=== PATIENT | male | born 1980 | race Caucasian/White ===

== ENCOUNTER → 2019-07-20 07:30 | Outpatient (BNVA) | payer OTHER, SELFPAY | PROVIDERS: Visit Provider Nurse Practitioner | DX: F43.12 Post-traumatic stress disorder, chronic (principal); Z87.820 Personal history of traumatic brain injury | CPT/HCPCS: 90832; 99213 ==

== ENCOUNTER → 2019-08-01 13:12 | Outpatient (BNVA) | payer OTHER, SELFPAY | PROVIDERS: Visit Provider Nurse Practitioner | DX: Z87.820 Personal history of traumatic brain injury (principal); F43.12 Post-traumatic stress disorder, chronic | CPT/HCPCS: 99214 ==

== ENCOUNTER → 2019-11-09 08:24 | Outpatient (BNVA) | payer OTHER, SELFPAY | PROVIDERS: Visit Provider Nurse Practitioner | DX: Z87.820 Personal history of traumatic brain injury (principal); F43.12 Post-traumatic stress disorder, chronic | CPT/HCPCS: 99214 ==

== ENCOUNTER → 2019-12-05 07:34 | Outpatient (BNVA) | payer OTHER, SELFPAY | PROVIDERS: Visit Provider Nurse Practitioner | DX: Z87.820 Personal history of traumatic brain injury (principal); F43.12 Post-traumatic stress disorder, chronic | CPT/HCPCS: 99213 ==

== ENCOUNTER → 2021-03-04 11:32 | Outpatient (BNVA) | payer OTHER, SELFPAY | PROVIDERS: Visit Provider Nurse Practitioner | DX: F43.12 Post-traumatic stress disorder, chronic (principal); F17.210 Nicotine dependence, cigarettes, uncomplicated; Z87.820 Personal history of traumatic brain injury | CPT/HCPCS: 99215 ==

== ENCOUNTER → 2021-04-01 11:06 | Outpatient (BNVA) | payer OTHER, SELFPAY | PROVIDERS: Visit Provider Nurse Practitioner | DX: F43.12 Post-traumatic stress disorder, chronic (principal); Z87.820 Personal history of traumatic brain injury | CPT/HCPCS: 99214 ==

== ENCOUNTER 2021-07-04 11:25 | Outpatient (CLI) | payer OTHER, SELFPAY ==
--- NOTE | 2021-07-04 11:27 | CT_ITS ---
WS: [id number] NONCONTRAST CT OF THE RIGHT HAND TECHNIQUE: Noncontrast CT of the right hand with coronal and sagittal reformatted images. CLINICAL INFORMATION: M79.643 - Pain in unspecified hand COMPARISON: Radiograph February 17, 2021 DLP: 122.[address] scans at [facility] use at least one of these dose optimization techniques: automated e xposure control; mA and/or kV adjustment per patient size (includes targeted exams where dose is matc hed to clinical indication); or iterative reconstruction. FINDINGS:Slightly comminuted fractures base of the third metacarpal with intra-articular involvement. Additional tiny adjacent fracture involving the adjacent capitate. Small bony fragments along the do rsal aspect of the joint. Probable additional adjacent tiny nondisplaced fracture along the base of t he fourth metacarpal. Small associated ovoid fluid collection along the extensor retinaculum which extends to the third/fou rth metacarpal space at the base of the third and fourth metacarpals. This measures approximately 8.6 x 9.8 mm. Findings suspicious for small posttraumatic ganglion cyst. Normal anatomic alignment. Normal scaphoid and lunate. Normal scapholunate interval. Normal distal ra dial ulnar joint. Well-corticated small styloid process fractures. First metacarpal is normal. Normal first CMC and STT. Metacarpals are otherwise normal in appearance. CT/CT hand RT wo con* [id number] IMPRESSION: 1. Comminuted fractures involving the base of the third metacarpal with intra- articular extension. Adjacent slightly comminuted fractures involving the abutt ing anterior aspect of the capitate. Several small fracture fragments along the dorsal aspect of the CMC joint. 2. Probable additional adjacent tiny nondisplaced fracture along the base of t he fourth metacarpal 3. Small fluid collection or edema in this area with disruption of the extenso r retinaculum. Small fluid collection measures 9.8 x 2.6 mm suspicious for smal l ganglion cyst. 4. Normal scaphoid and lunate. 5. Chronic small well-corticated ulna styloid process avulsion fractures.
== END 2021-07-04 11:26 | disposition home or self-care (01) ==
PROVIDERS: Visit Provider Orthopaedic Surgery
DX: S62.312A Displaced fracture of base of third metacarpal bone, right hand, initial encounter for closed fracture (principal); S62.131A Displaced fracture of capitate [os magnum] bone, right wrist, initial encounter for closed fracture; X58.XXXA Exposure to other specified factors, initial encounter
CPT/HCPCS: 73200

== ENCOUNTER 2023-01-20 11:45 | Emergency (ER) | payer OTHER, SELFPAY ==
[2023-01-20 12:10] VITALS: BP 147/89; PULSE 87; RESP 17; TEMP 36.5; O2SAT 97; BMI 34.9
--- NOTE | 2023-01-20 13:04 | ED_ITS ---
HPI - Eye Problem General: Chief complaint: Eye Problems Stated complaint: LT eye inj Time Seen by Provider: 01/20/23 12:21 History of Present Illness: Patient was weed eating earlier today and anything flew up and hit him in the left eyeball. Patient said increased pain since then as well as sensitivity to light and watering. Review of Systems General: Reports: 10 or more systems reviewed and unremarkable except in HPI and below PFSH ED PFSH: Medical History Nicotine dependence, cigarettes, uncomplicated Personal history of traumatic brain injury Post-traumatic stress disorder, chronic Psychiatric care Social History Smoking and tobacco status: never smoked Smoking risk assessment/counseling performed?: Yes Tobacco counseling given: counseling >3 minutes Alcohol intake: former Year of sobriety/quit date alcohol: 2015 Substance/Drug Use: never Physical Exam Const: COMMON NORMALS: no acute distress, average body habitus, patient oriented x3, no limitations, healthy appearing, alert and well nourished HENMT: COMMON NORMALS: normocephalic, atraumatic, hearing grossly normal bilaterally, external ears normal, Normal external nose present and moist oral mucous membranes HEAD & SCALP: normocephalic and atraumatic NOSE: Normal external nose present EXTERNAL EAR: Yes external ears normal Eye: COMMON NORMALS: Equal, round and reactive pupils present GENERAL EYE: normal light reflex ALIGNMENT: Yes alignment normal PERIORBITAL: pe riorbital findings normal EYELID: eyelids normal CORNEA: No corneas normal (Corneal abrasion noted) PUPIL: Yes Equal, round and reactive pupils present DIRECT OPHTHALMOSCOPY: Yes normal light reflex Neck/C-Spine: COMMON NORMALS: full ROM, no lymphadenopathy, supple, no meningeal signs, no JVD and Thyroid normal THYROID: Thyroid normal Chest: COMMONS NORMALS: normal inspection of the chest and normal palpation of entire chest wall Resp: COMMON NORMALS: normal respiratory effort, No retractions, No use of accessory muscles and clear to auscultation bilaterally AUSCULTATION: clear to auscultation bilaterally Cardio: COMMON NORMALS: no JVD, regular rate, regular rhythm, S1 normal heart sound present, S2 normal heart sound present, No murmurs present (Cardio) and No rub (Cardio) RATE: regular rate RHYTHM: regular rhythm HEART SOUNDS: S1 normal heart sound present and S2 normal heart sound present GI: COMMON NORMALS: Normal to inspection, nondistended, normoactive bowel sounds present, Soft to palpation, non-tender, No hepatosplenomegaly present and no masses PALPATION: Yes Soft to palpation and Yes No hepatosplenomegaly present : COMMON NORMALS: Yes no CVA tenderness BLADDER/KIDNEY EXAM: Yes no CVA tenderness Back/Pelvis: COMMON NORMALS: no CVA tenderness Neuro: COMMON NORMALS: patient oriented x3 SENSORIUM/ORIENTATION: Yes alert MENINGEAL SIGNS: Yes no meningeal signs Course Vital Signs: Vital signs: Vital Signs Temperature 97.7 F 01/20/23 12:10 Pulse Rate 87 01/20/23 12:10 Respiratory Rate 17 01/20/23 12:10 Blood Pressure 147/89 01/20/23 12:10 Pulse Oximetry 97 01/20/23 12:10 Oxygen Delivery Me thod Room Air 01/20/23 12:10 MDM - Eye Problem Medical Decision Making Patient presents to the ER with complaints of hitting a rock with his weedeater and hitting him in the eye of the left eyeball. Eyeball was anesthetized pain and fluorescein drops were used patient was examined under black light and had eyelid inverted. No foreign body was noted but corneal abrasion was seen. This was explained to the patient in detail patient be placed on some antibiotic eyedrops and discharged home to follow-up with his PCP and/or rn hematology. Differential Diagnosis Likely corneal abrasion; Unlikely conjunctivitis, acute iritis, hyphema, periorbital cellulitis, subconjunctival hemorrhage, glaucoma, corneal ulcer or ruptured globe Medical Records I reviewed the patient's medical records. Lab Data I reviewed the patient's lab results. Discharge Plan Discharge Patient Disposition: Home Clinical Impression: Corneal abrasion Qualifiers: Encounter type: initial encounter Laterality: left Qualified Code(s): S05.02XA - Injury of conjunctiva and corneal abrasion without foreign body, left eye, initial encounter Condition: Stable Prescriptions: New gentamicin 0.3 % drops 1 drp ophthalmic (eye) Q6H 7 Days Qty: 5 0RF No Action citalopram [Celexa] 40 mg tablet 40 mg PO DAILY Qty: 90 1RF trazodone 50 mg tablet 50 mg PO .QHS PRN (Reason: insomnia) Qty: 90 0RF nicotine 14 mg/24 hr patch 24 hour 1 patch transdermal DAILY Qty: 28 2RF Discharge Orders: Discharge ED (Routine); Ordered 01/20/23 Ordered By: Han Velarde Patient Instructions: Corneal Abrasion (ED) Activity Restrictions/Additional Instructions: Use medicine as directed. Please follow-up with your primary care practitioner and/or eye doctor in the next 7 days or sooner as needed. Coding Level of Care Code ED Environmental Studies Department Chair for Inez Narvaez
--- NOTE | 2023-01-22 12:17 | DCPLANNER ---
frozen food department manager called patient due to no primary care physician - patient declines at this time.
== END 2023-01-20 13:26 | disposition home or self-care (01) ==
PROVIDERS: Emergency Provider Emergency Medicine
DX: S05.02XA Injury of conjunctiva and corneal abrasion without foreign body, left eye, initial encounter (principal); W20.8XXA Other cause of strike by thrown, projected or falling object, initial encounter; Y93.H2 Activity, gardening and landscaping
CPT/HCPCS: 99283

== ENCOUNTER → 2024-09-27 12:51 | Outpatient (BNVA) | payer OTHER, SELFPAY | PROVIDERS: PCP Nurse Practitioner; Referring Provider Nurse Practitioner; Visit Provider Surgery | DX: Z12.11 Encounter for screening for malignant neoplasm of colon (principal) | CPT/HCPCS: 99204 ==

== ENCOUNTER 2024-10-11 10:03 | Outpatient (CLI) | payer OTHER, SELFPAY ==
--- NOTE | 2024-10-11 10:05 | CT_ITS ---
WS: [id number] CT chest wo con [id number] HISTORY: HX OF ASBESTOS EXPOSURE TECHNIQUE: Axial imaging performed through the thorax. Coronal and sagittal reformats are submitted. All CT scans at [facility] use at least one of these dose optimization techniques: automated exposure control; mA and/or kV adjustment per patient size (includes targeted exams where dose is matched to clinical indication); or iterative reconstruction. CONTRAST: None DLP: 539.56 mGy.cm COMPARISON: None available. Lungs and central airway: Normal. Pleura: Normal. No pleural effusion. No pleural calcifications or nodules. Heart and pericardium: Normal size heart with no pericardial effusion. Mediastinum and cailin: No mediastinum or hilar adenopathy. Vessels: Normal size aortic and pulmonary artery. No coronary artery calcifications. Chest wall and lower neck: No soft tissue masses. Upper abdomen: Slightly contracted gallbladder. There is a tiny focus of increased density within the gallbladder which may be a small polyp versus stone. No adjacent inflammation. Osseous structures: No destructive process. CT/CT chest wo con [id number] IMPRESSION: 1. No pleural plaques or basilar reticulations associated with asbestosis expo sure. 2. No mass or nodule. 3. No bronchiectasis.
== END 2024-10-11 10:04 | disposition home or self-care (01) ==
LOC: RAD 10:03
PROVIDERS: PCP Nurse Practitioner; Visit Provider Nurse Practitioner
DX: Z01.89 Encounter for other specified special examinations (principal)
CPT/HCPCS: 71250

== ENCOUNTER → 2024-11-07 11:06 | Outpatient (BNVA) | payer OTHER, SELFPAY | PROVIDERS: PCP Nurse Practitioner; Referring Provider Nurse Practitioner; Visit Provider Specialist | DX: G56.01 Carpal tunnel syndrome, right upper limb (principal) | CPT/HCPCS: 95911 ==